=== PATIENT | female | born 1985 | race Caucasian/White ===

== ENCOUNTER 2018-12-18 22:45 | Emergency (ER) | payer OTHER ==
[2018-12-18 22:57] VITALS: BP 109/84; TEMP 98.2; O2SAT 98
--- NOTE | 2018-12-18 23:20 | RAD ---
CLINICAL HISTORY: injured top of rt foot COMPARISON: None. TECHNIQUE: XR FOOT 3 OR MORE VIEWS 12/18/2018 10:57 PM CDT FINDINGS: There is no fracture. Joint spaces are preserved. Soft tissues are unremarkable. IMPRESSION: No acute osseous findings. Electronically signed by: Esa Bentley MD 12/18/2018 11:18 PM CDT
--- NOTE | 2018-12-18 23:22 | ED.PDOC ---
History of Present Illness - General Chief Complaint: Lower Extremity Injury Stated Complaint: rt foot pain Time Seen by Provider: 12/18/18 23:19 Source: patient Exam Limitations: no limitations - History of Present Illness Initial Comments: The patient is a 33-year-old female presenting to the emergency room after having twisted her right foot after falling off the porch this evening. The patient does have some bruising to the medial aspect of the foot. That is where the pain is. No ankle or knee pain. No obvious bony deformity. no obvious palpable bony deformity. sensation is preserved. Timing/Duration: momentarily Severity: moderate Improving Factors: immobilization Worsening Factors: movement Associated Symptoms: denies symptoms Allergies/Adverse Reactions: Allergies NO KNOWN ALLERGY Allergy (Verified 07/21/15 10:57) Home Medications: Ambulatory Orders Tramadol HCl 50 mg PO Q8HR PRN #10 tab 12/18/18 Review of Systems - Review of Systems Constitutional: States: no symptoms reported EENTM: States: no symptoms reported Respiratory: States: no symptoms reported Cardiology: States: no symptoms reported Gastrointestinal/Abdominal: States: no symptoms reported Genitourinary: States: no symptoms reported Musculoskeletal: States: see HPI Skin: States: no symptoms reported Neurological: States: no symptoms reported Endocrine: States: no symptoms reported All other Systems: No Change from Baseline Past Medical History (General) - Patient Medical History Hx Asthma: No Hx Hypertension: No Hx Diabetes: No Hx MRSA: No Surgical History: cholecystectomy - Vaccination History Hx Tetanus, Diphtheria Vaccination: Yes - 6 years ago Hx Influenza Vaccination: No Hx Pneumococcal Vaccination: No - Social History Hx Tobacco Use: Yes - Female History Patient is a Female of Child Bearing Age (10 -59 yrs old): Yes Patient : No Family Medical History - Family History Mother Family History: No Known Living Status: Still Living Physical Exam - Physical Exam General Appearance: Alert, Comfortable, No apparent distress Eye Exam: bilateral normal Ears, Nose, Throat: hearing grossly normal Neck: full range of motion Respiratory: no respiratory distress, no accessory muscle use Cardiovascular/Chest: normal peripheral pulses, no edema Peripheral Pulses: dorsalis pedis,right: 2+, dorsalis pedis,left: 2+, posterior tibialis,right: 2+, posterior tibialis,left: 2+ Gastrointestinal/Abdominal: other - obese Rectal Exam: deferred Extremity: normal range of motion, no calf tenderness, normal capillary refill, other - no crepitus. No bony deformity. There is bruising to the dorsal medial aspect of the right foot. Sensation appears to be preserved. 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 She appears to have a medial midfoot sprain. She is going to be placed in a walking boot and I do recommend that she use it for at least 2-3 weeks. If pain is not improving or is worsening then a repeat x-ray may be warranted. X-ray here shows no obvious fracture or dislocation. Motrin can be used for discomfort and she will be written for a few tablets of tramadol for as needed use. ER warnings are given for any worsening. Keep follow-up with primary care doctor. [email or web address] [id number] Departure - Departure Clinical Impression: Right foot sprain Qualifiers: Encounter type: initial encounter Qualified Code(s): S93.601A - Unspecified sprain of right foot, initial encounter Disposition: Discharge to Home or Self Care Condition: Fair Departure Forms: ED Discharge - Pt. Copy, Patient Portal Self Enrollment Instructions: Foot Sprain (DC) Diet: regular diet Activity: increase activity as tolerated - use the walking boot Prescriptions: Tramadol HCl 50 mg PO Q8HR PRN #10 tab PRN Reason: Moderate Pain Home Medications: Ambulatory Orders Tramadol HCl 50 mg PO Q8HR PRN #10 tab 12/18/18 Additional Instructions: the patient is a 33-year-old female presenting to the emergency room after having twisted her right foot after a fall. She appears to have a medial midfoot sprain. She is going to be placed in a walking boot and I do recommend that she use it for at least 2-3 weeks. If pain is not improving or is worsening then a repeat x-ray may be warranted. X-ray here shows no obvious fracture or dislocation. Motrin can be used for discomfort and she will be written for a few tablets of tramadol for as needed use. ER warnings are given for any worsening. Keep follow-up with primary care doctor.
[2018-12-18] MEDS: traMADol HCL 50 MG TAB PO ONE (23:29)
== END 2018-12-18 23:46 | disposition home or self-care (01) ==
LOC: ER 22:45
DX: S93.601A Unspecified sprain of right foot, initial encounter (principal); Z87.891 Personal history of nicotine dependence; W17.89XA Other fall from one level to another, initial encounter; Y92.89 Other specified places as the place of occurrence of the external cause